=== PATIENT | male | born 1950 | race Caucasian/White ===

== ENCOUNTER 2017-02-11 06:49 | Day surgery (SDC) | payer OTHER ==
[~2017-02-11] VITALS: Ht 175.3 cm; Wt 96.8 kg
[~2017-02-11 06:49] MED LIST: ALBU8.5H8 IH; ASPI81TA33 PO; BECL8.7A5 IH; CIPR500S4 PO; CITA10TA13 PO; FLUT16SP2 NASAL; LISI-618 PO; MOM30 PO; MONT10TA21 PO; OMEP20TA2 PO; PRED5SOL PO; SALMH IH; SIMVASTATIN PO; [UNRECOGNIZED DRUG - OTHER] PO
[2017-02-11] MEDS ORDERED: SODIUM CHLORIDE 0.9% 1,000 ML IV ONE ×2 (07:00→07:11)
[2017-02-11] MEDS ORDERED: MIDAZOLAM HCL 2 MG/2 ML VIAL ONE (07:52)
[2017-02-11] MEDS ORDERED: FentaNYL CITRATE-PF 100 MCG/2 ML VIAL ONE (07:52)
[2017-02-11] MEDS ORDERED: LIDOCAINE HCL 4% 50 ML SOLUTION ONE (15:53)
[2017-02-11] MEDS ORDERED: LIDOCAINE HCL 2% 5 ML JELLY ONE (15:53)
[2017-02-11] MEDS ORDERED: BENZOCAINE 20% 30 ML SOLUTION ONE (15:53)
[2017-02-11] MEDS ORDERED: OXYGEN THERAPY IH SCH (20:00)
== END 2017-02-11 10:45 | disposition home or self-care (01) ==
LOC: SURGERY 06:49
PROVIDERS: ATTEND Internal Medicine Critical Care Medicine
DX: J38.4 Edema of larynx (principal); B37.0 Candidal stomatitis; J18.9 Pneumonia, unspecified organism; M19.90 Unspecified osteoarthritis, unspecified site; Z91.013 Allergy to seafood; Z88.8 Allergy status to other drugs, medicaments and biological substances; Z79.01 Long term (current) use of anticoagulants; Z98.890 Other specified postprocedural states; Z87.01 Personal history of pneumonia (recurrent)
CPT/HCPCS: 31623; 31624; 71010; 87015 ×2; 87070; 87101; 87205; 87220; 88108; 88312; J2250; J3010; J7030